=== PATIENT | female | born 1995 | race Caucasian/White ===

== ENCOUNTER 2018-08-10 09:09 | Emergency (ER) | payer SELFPAY ==
[2018-08-10] MEDS ORDERED: Ibuprofen 600 MG Tab PO ONE (09:19)
--- NOTE | 2018-08-10 09:29 | EDM.PDOC ---
ED HPI GENERAL MEDICAL PROBLEM - General Chief Complaint: Lower Extremity Injury/Pain Stated Complaint: INJURED ANKLE Time Seen by Provider: 08/10/18 09:10 Source of Information: Reports: Patient History Limitations: Reports: No Limitations - History of Present Illness INITIAL COMMENTS - FREE TEXT/NARRATIVE: History of present illness: []Patient was exercising doing a crab walk when she rolled her right ankle. Patient arrives by EMS complaining of lateral ankle pain and lower leg pain she denies any numbness or tingling or any other injuries. Review of systems: As per history of present illness and below otherwise all systems reviewed and negative. Past medical history: As per history of present illness and as reviewed below otherwise noncontributory. Surgical history: As per history of present illness and as reviewed below otherwise noncontributory. Social history: No reported history of drug or alcohol abuse. Family history: As per history of present illness and as reviewed below otherwise noncontributory. Physical exam: General: Well developed, well nourished in NAD HEENT: Atraumatic, normocephalic, pupils reactive, negative for conjunctival pallor or scleral icterus, mucous membranes moist, throat clear, neck supple, nontender, trachea midline. Lungs: Clear to auscultation, breath sounds equal bilaterally, chest nontender. Heart: S1S2, regular, negative for clicks, rubs, or JVD. Abdomen: NABS, Soft, nondistended, nontender. Negative for masses or hepatosplenomegaly. Negative for costovertebral tenderness. Pelvis: Stable nontender. Genitourinary: Deferred. Rectal: Deferred. Extremities: Ankle with tenderness the lateral malleolus and distal tib-fib, there is no swelling or obvious deformities. Distal pulses are palpable sensations intact and able to move toes., negative for cords or calf pain. Neurovascular unremarkable. Neuro: Awake, alert, oriented. Cranial nerves II through XII unremarkable. Cerebellum unremarkable. Motor and sensory unremarkable throughout. Exam nonfocal. Skin:warm and dry Diagnostics: X-ray right ankle no fracture or dislocation Therapeutics: Ibuprofen for pain, air splint ED Course: Unremarkable Impression: Right ankle sprain Prescriptions: None Plan: Ice, elevation, anti-inflammatories follow-up with primary care no strenuous lower extremity exercise for 2 weeks or until further evaluation and cleared for full duty. Definitive disposition and diagnosis as appropriate pending reevaluation and review of above. Right Ankle Pain Score (Numeric/FACES): 6 - Related Data Allergies Allergy/AdvReac Type Severity Reaction Status Date / Time No Known Allergies Allergy Verified 08/10/18 09:14 Home Meds: Home Meds . [No Known Home Meds] 08/10/18 [History] Past Medical History - Past Health History Medical/Surgical History: Denies Medical/Surgical History Social & Family History - Family History Family Medical History: Noncontributory - Tobacco Use Smoking Status *Q: Never Smoker - Recreational Drug Use Recreational Drug Use: No Review of Systems - Review of Systems Review Of Systems: ROS reveals no pertinent complaints other than HPI. ED EXAM, GENERAL - Physical Exam Exam: See Below Course - Vital Signs Last Recorded V/S: Last Vital Signs Temp 98.2 F 08/10/18 09:10 Pulse 89 08/10/18 09:10 Resp 16 08/10/18 09:10 BP 116/73 08/10/18 09:10 Pulse Ox 98 08/10/18 09:10 - Orders/Labs/Meds Orders: Active Orders 24 hr Category Date Time Status Splinting [RC] ASDIRECTED Care 08/10/18 10:15 Ordered Ankle Min 3V Rt [CR] Stat Exams 08/10/18 09:10 Taken Meds: Medications Discontinued Medications Generic Name Dose Route Start Last Admin Trade Name Moeq PRN Reason Stop Dose Admin Ibuprofen 600 mg 08/10/18 09:19 08/10/18 09:25 Motrin PO 08/10/18 09:20 600 mg ONETIME ONE Administration Departure - Departure Time of Disposition: 10:17 Disposition: Home, Self-Care 01 Condition: Good Clinical Impression: Right ankle sprain Qualifiers: Encounter type: initial encounter Involved ligament of ankle: unspecified ligament Qualified Code(s): S93.401A - Sprain of unspecified ligament of right ankle, initial encounter - Discharge Information Forms: ED Department Discharge - My Orders Last 24 Hours: My Active Orders 08/10/18 09:10 Ankle Min 3V Rt [CR] Stat 08/10/18 10:15 Splinting [RC] ASDIRECTED - Assessment/Plan Last 24 Hours: My Active Orders 08/10/18 09:10 Ankle Min 3V Rt [CR] Stat 08/10/18 10:15 Splinting [RC] ASDIRECTED
--- NOTE | 2018-08-10 11:15 | CR ---
EXAM DATE: 08/10/18 PATIENT'S AGE: 22 Patient: SERA CUETO Facility: [place], [place] Site . Site : [id number] Study: XRay Extremity Right [id number]/8/[id number] 9:44:39 AM Ordering Physician: Deon Ruiz Final Report: INDICATION: Patient sprained ankle during physical therapy. TECHNIQUE: Three views right ankle. FINDINGS: No acute fracture or dislocation in right ankle. Probable slight soft tissue swelling right ankle. Remainder negative. Dictated by Sukhdev Hua MD @ Aug 10 2018 10:07AM (Electronic Signature) Report Signed by Proxy. GORDO
== END 2018-08-10 10:36 | disposition home or self-care (01) ==
LOC: MW.ED 09:09
DX: S93.401A Sprain of unspecified ligament of right ankle, initial encounter (principal); X50.1XXA Overexertion from prolonged static or awkward postures, initial encounter
CPT/HCPCS: 73610; 99283; A9270

== ENCOUNTER 2019-01-27 18:04 | Emergency (ER) | payer OTHER ==
--- NOTE | 2019-01-27 18:21 | EDM.PDOC ---
ED HPI GENERAL MEDICAL PROBLEM - General Chief Complaint: Skin Complaint Stated Complaint: RASH ON LEG Time Seen by Provider: 01/27/19 18:14 Source of Information: Reports: Patient History Limitations: Reports: No Limitations - History of Present Illness INITIAL COMMENTS - FREE TEXT/NARRATIVE: HISTORY AND PHYSICAL: History of present illness: Patient is a 23-year-old female presents to the ED today with concern of a rash underneath her splinting cast. She states that she had some tendon repaired on her right ankle surgically a little over a week ago. She states she did have one follow-up which they put this new splint cast on. Patient states she has another follow-up in a week with her surgeon. Patient states that starting last night she started developing an itchy rash on the top of her cast that extends down she feels to her ankle. Patient states she's been taking Benadryl. Patient states the rash improves when she selectively doesn't scratch it worsens when she patient denies any other symptoms or concerns at this time. Patient denies any health history. Patient denies fever, chills, chest pain, shortness of breath, or cough. Denies headache, neck stiff ness, change in vision, syncope, or near syncope. Denies nausea, vomiting, abdominal pain, diarrhea, constipation, or dysuria. Has not noted any blood in urine or stool. Patient has been eating and drinking appropriately. Review of systems: As per history of present illness and below otherwise all systems reviewed and negative. Past medical history: As per history of present illness and as reviewed below otherwise noncontributory. Surgical history: As per history of present illness and as reviewed below otherwise noncontributory. Social history: See social history for further information Family history: As per history of present illness and as reviewed below otherwise noncontributory. Physical exam: General: Patient is alert, oriented, and in no acute distress. Patient sitting comfortably on exam table. HEENT: Atraumatic, normocephalic, pupils equal and reactive bilaterally, negative for conjunctival pallor or scleral icterus, mucous membranes moist, TMs normal bilaterally, throat clear, neck supple, nontender, trachea midline. No drooling or trismus noted. No meningeal signs. No hot potato voice noted. Lungs: Clear to auscultation, breath sounds equal bilaterally, chest nontender. Heart: S1S2, regular rate and rhythm without overt murmur Abdomen: Soft, nondistended, nontender. Negative for masses or hepatosplenomegaly. Negative for costovertebral tenderness. Pelvis: Stable nontender. Genitourinary: Deferred. Rectal: Deferred. Skin: Short posterior mold casting in place of right lower extremity. There is a nonspecific macular papular rash just superior to the cast/splint of the right leg Extremities: See skin. Otherwise, Atraumatic, negative for cords or calf pain. Neurovascular unremarkable. Neuro: Awake, alert, oriented. Cranial nerves II through XII unremarkable. Cerebellum unremarkable. Motor and sensory unremarkable throughout. Exam nonfocal. Notes: Dr. Vera directly involved in patient care. Patient was provided with the option to remove the fasting splint that she has in order to better evaluate the extent of the rash and for infection. Patient declines. All risks and benefits discussed with patient and she expresses understanding. Voices understanding and is agreeable to plan of care. Denies any further questions or concerns at this time. Diagnostics: None Therapeutics: None Prescription: None Impression: Dermatitis Plan: 1. While symptomatic continue to routinely take Benadryl. You can alternate ibuprofen and Tylenol as directed for pain and discomfort 2. Call the clinic for your surgeon in the morning as discussed. Return to the ED as needed and as discussed. Definitive disposition and diagnosis as appropriate pending reevaluation and review of above. - Related Data Allergies Allergy/AdvReac Type Severity Reaction Status Date / Time No Known Allergies Allergy Verified 01/27/19 18:19 Home Meds: Home Meds . [No Known Home Meds] 08/10/18 [History] Past Medical History - Past Health History Medical/Surgical History: Denies Medical/Surgical History Social & Family History - Family History Family Medical History: Noncontributory ED ROS GENERAL - Review of Systems Review Of Systems: ROS reveals no pertinent complaints other than HPI. ED EXAM, SKIN/RASH Exam: See Below (See dictation) Course - Vital Signs Last Recorded V/S: Last Vital Signs Temp 36.4 C 01/27/19 18:20 Pulse 82 01/27/19 18:25 Resp 18 01/27/19 18:25 BP 112/75 01/27/19 18:25 Pulse Ox 97 01/27/19 18:25 Departure - Departure Time of Disposition: 18:20 Disposition: Home, Self-Care 01 Clinical Impression: Dermatitis - Discharge Information Instructions: Atopic Dermatitis Referrals: PCP,None [Ordering Only Provider] - Forms: ED Department Discharge Additional Instructions: The following information is given to patients seen in the emergency department who are being discharged to home. This information is to outline your options for follow-up care. We provide all patients seen in our emergency department with a follow-up referral. The need for follow-up, as well as the timing and circumstances, are variable depending upon the specifics of your emergency department visit. If you don't have a primary care physician on staff, we will provide you with a referral. We always advise you to contact your personal physician following an emergency department visit to inform them of the circumstance of the visit and for follow-up with them and/or the need for any referrals to a consulting specialist. The emergency department will also refer you to a specialist when appropriate. This referral assures that you have the opportunity for follow-up care with a specialist. All of these measure are taken in an effort to provide you with optimal care, which includes your follow-up. Under all circumstances we always encourage you to contact your private physician who remains a resource for coordinating your care. When calling for follow-up care, please make the office aware that this follow-up is from your recent emergency room visit. If for any reason you are refused follow-up, please contact the [facility] Emergency Department at and asked to speak to the emergency department charge nurse. [facility] [address] [place] [id number] [facility] [address] [place] [id number] 1. While symptomatic continue to routinely take Benadryl. You can alternate ibuprofen and Tylenol as directed for pain and discomfort 2. Call the clinic for your surgeon in the morning as discussed. Return to the ED as needed and as discussed.
== END 2019-01-27 18:32 | disposition home or self-care (01) ==
LOC: MW.ED 18:04
DX: L30.9 Dermatitis, unspecified (principal)
CPT/HCPCS: 99282

== ENCOUNTER 2020-04-04 22:42 | Emergency (ER) | payer OTHER ==
--- NOTE | 2020-04-04 23:41 | CR ---
INDICATION: Shortness of breath, COVID-19 positive TECHNIQUE: Chest radiograph 1 view COMPARISON: None FINDINGS: Mediastinum: The mediastinum is normal in appearance. The heart silhouette is normal in size and morphology. Lung: Both lungs are unremarkable in appearance. No sign of pleural effusion seen. No pneumothorax is identified. Bone and Soft tissue: Unremarkable for age. IMPRESSION: 1. No acute cardiopulmonary disease is seen. Dictated by: Choco Cantu MD @ 04/04/2020 23:39:26 (Electronically Signed)
--- NOTE | 2020-04-04 23:51 | EDM.PDOC ---
ED HPI GENERAL MEDICAL PROBLEM - General Chief Complaint: Respiratory Problem Stated Complaint: COVID POSITIVE, DIFFICULTY BREATHING Time Seen by Provider: 04/04/20 23:18 - History of Present Illness INITIAL COMMENTS - FREE TEXT/NARRATIVE: HISTORY AND PHYSICAL: History of present illness: This is a 24-year-old female with no significant past medical history who presents ER today secondary to shortness of breath. Patient reports that she was diagnosed with coronavirus yesterday. Patient reports that she is had positive contacts with coronavirus including her fianc who is positive. Patient reports that she has had fevers, cough, shortness of breath today. Patient denies any nausea, vomiting, diarrhea, dysuria, frequency, urgency. Patient reports some chest discomfort with deep inspiration and coughing. Patient reports tolerating p.o. solids and liquids well. Patient denies any history of hypertension, diabetes, liver, lung, kidney problems. Patient has no known drug allergies. Patient's last menstrual period was 4 days ago. Patient denies any abdominal or chest surgeries. Review of systems: As per history of present illness and below otherwise all systems reviewed and negative. MDM: Nurses notes reviewed and agree with PFSH, ROS, V/S. Any exceptions to agreement documented on physician record. Other than the symptoms associated with the present events, the following is reported with regard to recent health: General: (+) fever. HENT: (+) congestion. Respiratory: (+) cough. Cardiovascular:(+) chest pain. GI: (-) abdominal pain : (-) urinary complaints. Musculoskeletal: (-) other aches or pains. Endocrine: (-) generalized weakness. Neurological: (-) localized weakness. Psychiatric: (-)emotional stress Past medical history: As per history of present illness and as reviewed below otherwise noncontributory. Surgical history: As per history of present illness and as reviewed below otherwise noncontributory. Social history: No reported history of drug or alcohol abuse. Family history: As per history of present illness and as reviewed below otherwise noncontributory. Physical exam: Constitutional: Patient is oriented to person, place, and time. Appears well- developed and well-nourished. No distress. HEENT: Moist mucous membranes Head: Normocephalic and atraumatic Eyes: Right eye exhibits no discharge. Left eye exhibits no discharge. No scleral icterus Neck: Normal range of motion. No tracheal deviation present. Cardiovascular: Normal rate and regular rhythm. Pulmonary: Effort normal, no respiratory distress. No wheezing rales or rhonchi. No tachypnea. No evidence of respiratory distress. Abdominal: No distention Musculoskeletal: Normal range of motion Neurologic: Alert and oriented to person, place and time. Skin: [place], warm and dry. Psychiatric: Normal mood and affect. Behavior is normal. Judgment and thought content normal. Nursing note and vital signs have been reviewed Diagnostics: Chest Xray: Normal cardiac silhouette No infiltrates or effusions identified. No PTX No evidence of acute bony fracture. As interpreted by ER MD: Amaury Pulse ox 99% on room air Assessment and plan: Is a 24-year-old female who presents ER today secondary to shortness of breath. Patient reports that she was diagnosed with coronavirus yesterday. Patient's ER work-up is been unremarkable. Patient's chest x-ray reveals no infiltrates. Patient's pulse ox is 99% on room air. Patient is not appear to be in any acute respiratory distress. Patient does not exhibit any O2 deficit. Patient is stable for discharge to home with outpatient follow-up. 1. Your COVID-19 screening is positive. That means you do have the coronavirus and you are considered contagious. Your vital signs and oxygen saturation are well enough that you were able to monitor your symptoms at home. Continue to monitor for trouble breathing, new confusion or inability to arouse, bluish lips or face or any of the other symptoms we discussed -if this occurs please return to the emergency room. 2. Please self quarantine over the next 10 days. Inform any persons that you have been in contact with since you started becoming symptomatic that you have tested positive; they should be made aware and take the appropriate steps as needed. 3. You can take NyQuil during the evening to help get a restful night sleep. May alternate Tylenol and ibuprofen as needed for pain and fever management. 4. [facility] will be calling you and following up with you. The [place] COVID 19 Hot[place] phone number , They are open Monday - Monday 7am - 7pm. Follow up with your primary care provider for re-evaluation and re-testing after the 10 day quarantine and discuss when you should be seen. Reassessment at the time of disposition demonstrates that the patient is in no acute distress. The patient has remained stable throughout the entire ED visit and is without objective evidence for acute process requiring urgent intervention or hospitalization. The patient is stable for discharge, counseling is provided as documented above, discussed symptomatic treatment and specific conditions for return. I have spoken with the patient/caregiver and discussed todays findings, in addition to providing specific details for the plan of care. Questions are answered and there is agreement with the plan. Definitive disposition and diagnosis as appropriate pending reevaluation and review of above. center chest Pain Score (Numeric/FACES): 6 - Related Data Allergies Allergy/AdvReac Type Severity Reaction Status Date / Time No Known Allergies Allergy Verified 04/04/20 22:52 Home Meds: Home Meds Non-Formulary Medication [NF Drug] 04/04/20 [History] Past Medical History - Past Health History Medical/Surgical History: Denies Medical/Surgical History - Past Surgical History Musculoskeletal Surgical History: Reports: Other (See Below) Other Musculoskeletal Surgeries/Procedures:: Right ankle surgery Social & Family History - Family History Family Medical History: Noncontributory - Caffeine Use Caffeine Use: Reports: Coffee - Recreational Drug Use Recreational Drug Use: No ED ROS GENERAL - Review of Systems Review Of Systems: See Below ED EXAM, GENERAL - Physical Exam Exam: See Below Course - Vital Signs Last Recorded V/S: Last Vital Signs Temp 96.8 F L 04/04/20 22:53 Pulse 77 04/04/20 22:53 Resp 18 04/04/20 22:53 BP 132/92 H 04/04/20 22:53 Pulse Ox 100 04/04/20 22:53 Departure - Departure Time of Disposition: 23:49 Disposition: Home, Self-Care 01 Condition: Good Clinical Impression: 2019 novel coronavirus detected, Dyspnea - Discharge Information Instructions: COVID-19: How to Protect Yourself and Others - CDC, COVID-19, Prevent the Spread of COVID-19 if You Are Sick - CDC, COVID-19 Frequently Asked Questions Referrals: PCP,None [Primary Care Provider] - Additional Instructions: You were seen and evaluated in the ER today secondary to your shortness of ayde th and having been tested positive for coronavirus. Your oxygen level in the ER today is 98 to 99% on room air. At this time, given your normal oxygen level, there is no medical treatment other than rest for coronavirus. We recommend that you go home get plenty of rest, drink plenty of liquids. Please return to the ER if your shortness of breath worsens or if you have any new or concerning symptoms. Please follow-up with your family doctor for reevaluation in 1 week. 1. Your COVID-19 screening is positive. That means you do have the coronavirus and you are considered contagious. Your vital signs and oxygen saturation are well enough that you were able to monitor your symptoms at home. Continue to monitor for trouble breathing, new confusion or inability to arouse, bluish lips or face or any of the other symptoms we discussed -if this occurs please return to the emergency room. 2. Please self quarantine over the next 10 days. Inform any persons that you have been in contact with since you started becoming symptomatic that you have tested positive; they should be made aware and take the appropriate steps as needed. 3. You can take NyQuil during the evening to help get a restful night sleep. May alternate Tylenol and ibuprofen as needed for pain and fever management. 4. [facility] will be calling you and following up with you. The [place] COVID 19 Hot[place] phone number , They are open Monday - Monday 7am - 7pm. Follow up with your primary care provider for re-evaluation and re-testing after the 10 day quarantine and discuss when you should be seen. The following information is given to patients seen in the emergency department who are being discharged to home. This information is to outline your options for follow-up care. We provide all patients seen in our emergency department with a follow-up referral. The need for follow-up, as well as the timing and circumstances, are variable depending upon the specifics of your emergency department visit. If you don't have a primary care physician on staff, we will provide you with a referral. We always advise you to contact your personal physician following an emergency department visit to inform them of the circumstance of the visit and for follow-up with them and/or the need for any referrals to a consulting specialist. The emergency department will also refer you to a specialist when appropriate. This referral assures that you have the opportunity for follow-up care with a specialist. All of these measure are taken in an effort to provide you with optimal care, which includes your follow-up. Under all circumstances we always encourage you to contact your private physician who remains a resource for coordinating your care. When calling for follow-up care, please make the office aware that this follow-up is from your recent emergency room visit. If for any reason you are refused follow-up, please contact the [facility] Emergency Department at and asked to speak to the emergency department charge nurse. Sepsis Event Note (ED) - Evaluation Sepsis Screening Result: No Definite Risk - Focused Exam Vital Signs: Vital Signs Temp Pulse Resp BP Pulse Ox 04/04/20 22:53 96.8 F L 77 18 132/92 H 100
== END 2020-04-05 00:10 | disposition home or self-care (01) ==
LOC: MW.ED 22:42
DX: U07.1 COVID-19 (principal)
CPT/HCPCS: 71045; 71045-26; 99284-25